=== PATIENT | female | born 1970 | race Caucasian/White ===

== ENCOUNTER 2018-09-29 06:29 | Day surgery (SDC) | payer OTHER ==
[2018-09-29] MEDS ORDERED: SOD CHLORIDE 0.9% 1,000 ML IV (07:00)
[2018-09-29] MEDS ORDERED: MEPERIDINE 100 MG INJ (07:33)
[2018-09-29] MEDS ORDERED: MIDAZOLAM 1 MG/ML 2 ML INJ (07:33)
[2018-09-29] MEDS ORDERED: LIDOCAINE 2% (SDV) 5 ML INJ (07:33)
[2018-09-29] MEDS ORDERED: PROPOFOL 20 ML (07:33)
[2018-09-29] MEDS ORDERED: METOCLOPRAMIDE 10 MG INJ (07:34)
[2018-09-29] MEDS ORDERED: ONDANSETRON 4 MG INJ (07:34)
[2018-09-29] MEDS ORDERED: ONDANSETRON 4 MG INJ IV ×2 (08:00→08:30)
[2018-09-29] MEDS ORDERED: morphine 2 MG INJ IV (08:00)
[2018-09-29] MEDS ORDERED: HYDROCODONE/APAP (5/325) TAB PO (08:00)
[2018-09-29] MEDS: BUPIVACAINE 0.25%/EPI (SDV) 30 ML INJ (08:05)
[2018-09-29] MEDS: GENTAMICIN 80 MG INJ (08:05)
[2018-09-29] MEDS: POLYMYXIN/BACITRACIN 1L IRRIG (08:05)
[2018-09-29] MEDS ORDERED: FENTAnyl 50 MCG/ML VIAL IV ×3 (08:30)
[2018-09-29] MEDS ORDERED: METOCLOPRAMIDE 10 MG INJ IV (08:30)
[2018-09-29] MEDS ORDERED: HYDROmorphONE 1 MG/5 ML IV SYRINGE IV ×2 (08:30)
[2018-09-29] MEDS ORDERED: MIDAZOLAM 1 MG/ML 2 ML INJ IV (08:30)
[2018-09-29] MEDS ORDERED: OXYCODONE/ACETAMINOPHEN (5/325) TAB PO ×2 (08:30)
[2018-09-29] MEDS ORDERED: DIPHENHYDRAMINE 50 MG INJ IV (08:30)
[2018-09-29] MEDS: HYDROmorphONE 1 MG/5 ML IV SYRINGE IV ×2 (09:10→09:32)
[2018-09-29] MEDS: MEPERIDINE 25 MG INJ IV (09:48)
== END 2018-09-29 11:23 | disposition home or self-care (01) ==
LOC: SDS 06:29
DX: T85.44XA Capsular contracture of breast implant, initial encounter (principal); N64.4 Mastodynia; F41.9 Anxiety disorder, unspecified; E16.2 Hypoglycemia, unspecified
CPT/HCPCS: 19371; 82962